=== PATIENT | male | born 1970 | race Caucasian/White ===

== ENCOUNTER → 2016-07-30 | Outpatient (CLI) | payer BC | LOC: FLAB 16:54 | PROVIDERS: ATTEND Family Medicine | DX: M16.0 Bilateral primary osteoarthritis of hip (principal); M51.36 Other intervertebral disc degeneration, lumbar region ==

== ENCOUNTER → 2018-04-07 | Outpatient (CLI) | payer BC | LOC: FIMAGING 14:02 | PROVIDERS: ATTEND Orthopaedic Surgery | DX: M16.12 Unilateral primary osteoarthritis, left hip (principal) ==

== ENCOUNTER 2018-04-27 10:26 | Inpatient (IN) | payer BC ==
[~2018-04-27 10:26] MED LIST: BUPIVACAINE/EPI 0.5% 30 ML SDV ONE; POVIDONE-IODINE 20 ML in SODIUM CL IRRIG SOLUTION 500 ML IRR ONE; ROPIVACAINE 0.2% 80 MG, EPINEPHrine 0.2 MG, KETOROLAC TROMETHAMINE 30 MG in SYRINGE 0 ML IU ONE; TRANEXAMIC ACID 1,000 MG in NS 100 ML IV ONE
[2018-04-27] MEDS ORDERED: DEXAMETHASONE 4 MG/ML VIAL IVP ONE (10:53)
[2018-04-27] MEDS ORDERED: FAMOTIDINE 20 MG TAB PO ONE (10:53)
[2018-04-27] MEDS ORDERED: ACETAMINOPHEN 325 MG TAB PO ONE (10:53)
[2018-04-27] MEDS ORDERED: ceFAZolin 2 GM/DEXTROSE 100 ML IV ONE (10:53)
[2018-04-27] MEDS ORDERED: LR 1,000 ML IV ONE (10:54)
[2018-04-27] MEDS ORDERED: LIDOCAINE 1% 2 ML INJ ID PRN (10:54)
[2018-04-27] MEDS ORDERED: LIDOCAINE 1% 2 ML INJ ONE (11:03)
--- NOTE | 2018-04-27 11:31 | PDANEPAE ---
ANE History of Present Illness OA hip ANE Past Medical History - Cardiovascular History Hx Hypertension: No Hx Arrhythmias: No Hx Chest Pain: No Hx Coronary Artery / Peripheral Vascular Disease: No Hx CHF / Valvular Disease: No Hx Palpitations: No - Pulmonary History Hx COPD: No Hx Asthma/Reactive Airway Disease: No Hx Recent Upper Respiratory Infection: No Hx Oxygen in Use at Home: No Hx Sleep Apnea: No Sleep Apnea Screening Result - Last Documented: Negative - Neurologic History Hx Cerebrovascular Accident: No Hx Seizures: No Hx Dementia: No - Endocrine History Hx Diabetes: No Hypothyroid: No Hyperthyroid: No Obesity: no - Renal History Hx Renal Disorders: Yes Renal History Comment: NOCTURIA - Liver History Hx Hepatic Disorders: No - Neurological & Psychiatric Hx Hx Neurological and Psychiatric Disorders: No - Cancer History Hx Cancer: No - Congenital Disorder History Hx Congenital Disorders: No - GI History GERD: no Hx Gastrointestinal Disorders: No - Other Health History Other Health History: RESIDUAL NASAL BREATHING. POST SEPTOPLASTY. INSOMNIA. OSTEOARTHRITIS - Chronic Pain History Chronic Pain: Yes (LT HIP) - Surgical History Prior Surgeries: SEPTOPLASTY. LT ACL RECONSTRUCTION 1998. APPENDECTOMY. T & A ANE Review of Systems Review of systems is: negative Review of Systems: - Exercise capacity METS (RN): 6 METS ANE Patient History - Allergies Allergies/Adverse Reactions: oxycodone [From Percocet] Allergy (Verified 04/18/18 12:38) NASAL CONGESTION - Home Medications Home medications: home medication list seen and reviewed Home Medications: Ascorbic Acid [Vitamin C 500 mg (*)] 500 mg PO DAILY 04/05/18 [Last Taken 1 Week Ago ~04/20/18] Glucosamine/Chondroitin [Glucosamine/Chondroitin (*)] 1 each PO DAILY 04/05/18 [ Last Taken 1 Week Ago ~04/20/18] Herbals/Supplements -Info Only 1 each PO DAILY 04/05/18 [Last Taken 1 Week Ago ~ 04/20/18] Vitamin B Complex [Vitamin B Complex (OTC)] 1 each PO DAILY 04/05/18 [Last Taken 1 Week Ago ~04/20/18] Zolpidem Tartrate [Ambien 5MG (*)] 5 mg PO HS PRN 04/05/18 [Last Taken 1 Day Ago ~04/26/18] - NPO status NPO Since - Liquids (Date): 04/27/18 NPO Since - Liquids (Time): 09:00 NPO Since - Solids (Date): 04/26/18 NPO Since - Solids (Time): 20:00 - Anes Hx Anes Hx: no prior problems - Smoking Hx Smoking Status: Never smoked - Family Anes Hx Family Anes Hx: none ANE Labs/Vital Signs - Vital Signs Blood Pressure: 116/75 Heart Rate: 67 Respiratory Rate: 16 O2 Sat (%): 96 Height: 177.8 cm Weight: 70.307 kg ANE Physical Exam - Airway Neck exam: FROM Mallampati Score: Class 2 Mouth exam: normal dental/mouth exam - Pulmonary Pulmonary: no respiratory distress, clear to auscultation - Cardiovascular Cardiovascular: regular rate and rhythym, no murmur, rub, or gallop - ASA Status ASA Status: I ANE Anesthesia Plan Anesthesia Plan: spinal
--- NOTE | 2018-04-27 12:12 | PDHPUP ---
History & Physical Update H&P update statement: This history and physical update is based on an assessment of the patient which was completed after admission or registration (within 24 hours), but prior to the surgery/procedure. H&P update: H&P reviewed & patient examined, no change in patient's condition since H&P completed
[2018-04-27] MEDS ORDERED: ZOLPIDEM TARTRATE 5 MG TAB PO PRN (12:21)
[2018-04-27] MEDS ORDERED: MIDAZOLAM 2 MG/2 ML VIAL IVP ONE (12:33)
[2018-04-27] MEDS ORDERED: PROPOFOL/EMULSION 500 MG/50 ML BOTTLE IV ONE ×2 (12:46)
[2018-04-27] MEDS ORDERED: MIDAZOLAM 2 MG/2 ML VIAL ONE (12:46)
[2018-04-27] MEDS ORDERED: LIDOCAINE 2% 5 ML SDV ONE (13:40)
[2018-04-27] MEDS ORDERED: BUPIVACAINE/DEXTROSE 7.5MG/ML 2 ML SPINAL AMP SP ONE (13:40)
[2018-04-27] MEDS ORDERED: PROMETHAZINE HCL 25 MG/ML INJ IVP PRN (14:34)
[2018-04-27] MEDS ORDERED: CYCLOBENZAPRINE 10 MG TAB PO PRN (14:34)
[2018-04-27] MEDS ORDERED: BISACODYL 10 MG SUPP PR PRN (14:34)
[2018-04-27] MEDS ORDERED: DIPHENOXYLATE/ATROPINE LOMOTIL 1 TAB PO PRN (14:34)
[2018-04-27] MEDS ORDERED: POLYETHYLENE GLYCOL 3350 17 GM PKT PO PRN (14:34)
[2018-04-27] MEDS ORDERED: diphenhydrAMINE 25 MG CAP PO PRN (14:34)
[2018-04-27] MEDS ORDERED: METOCLOPRAMIDE 10 MG/2 ML VIAL IVP PRN (14:34)
[2018-04-27] MEDS ORDERED: PROMETHAZINE HCL 25 MG SUPPR PR PRN (14:34)
[2018-04-27] MEDS ORDERED: ONDANSETRON 4 MG/2 ML VIAL IVP PRN ×2 (14:34→14:40)
[2018-04-27] MEDS ORDERED: ONDANSETRON DISINTEGRATING 4 MG TAB PO PRN (14:34)
[2018-04-27] MEDS ORDERED: TEMAZEPAM 15 MG CAP PO PRN (14:34)
[2018-04-27] MEDS ORDERED: LACTULOSE 20 GM/30 ML UDCUP PO PRN (14:34)
[2018-04-27] MEDS ORDERED: MAGNESIUM HYDROXIDE 30 ML UDCUP PO PRN (14:34)
--- NOTE | 2018-04-27 14:34 | POSTOPPROG ---
Post Op Note Date of Operation: 04/27/18 Surgeon: James Bustamante Senior Enterprise Architect: CALE Hastings Anesthesiologist: MD Dianna Anesthesia: IV Sedation, Spinal Pre-op Diagnosis: Left hip OA Post-op Diagnosis: Same Procedure: Left ant FREIDA with Humberto Inf/Abcess present in the surg proc area at time of surgery?: No EBL: 100-500 (300) Drains: Hemovac
[2018-04-27] MEDS ORDERED: NALOXONE HCL 0.4 MG/ML INJ IVP PRN (14:40)
[2018-04-27] MEDS ORDERED: HYDROmorphONE/DILAUDID 2 MG/ML INJ IVP PRN (14:40)
[2018-04-27] MEDS ORDERED: HYDROCODONE/APAP 10/325 TAB PO PRN (14:40)
[2018-04-27] MEDS ORDERED: fentaNYL 100 MCG/2 ML INJ IVP PRN (14:40)
--- NOTE | 2018-04-27 14:41 | POSTANESTH ---
Post Anesthetic Evaluation Cardiovascular Status: Normal, Stable Respiratory Status: Normal, Stable Level of Consciousness/Mental Status: Can Participate in Eval Pain Control: Adequate, Prn Tx Ordered Nausea/Vomiting Control: Adequate, Prn Tx Ordered Complications Possibly Related to Anesthesia: None Noted
--- NOTE | 2018-04-27 14:49 | PDMN ---
Medical Ne[place]ity [place] [facility] [place] OP: L FREIDA
[2018-04-27] MEDS ORDERED: LR 1,000 ML IV SCH (15:00)
--- NOTE | 2018-04-27 18:38 | GOP ---
[f rep st] OPERATIVE REPORT DATE OF OPERATION: 04/27/2018 SURGEON: James Bustamante MD YARN SPINNER: Jordan Hastings CFA. The assistant dean was required for the procedure due to the complexit y of the case and the patient's condition for positioning, prepping, draping, retraction, and closure . ANESTHESIA: Spinal and IV sedation. PREOPERATIVE DIAGNOSIS: Left hip osteoarthritis. POSTOPERATIVE DIAGNOSIS: Left hip osteoarthritis. PROCEDURE PERFORMED: Left anterior approach total hip arthroplasty with MAKOplasty robotic guidance; fluoroscopic supervision, greater than 1 hour. FINDINGS: SPECIMENS: Femoral head. ESTIMATED BLOOD LOSS: 300 cc. INDICATIONS: The patient has severe hip osteoarthritis that failed to improve with conservative fiona ures, significantly affecting activities of daily living, including walking. The patient elected to proceed with anterior approach hip replacement using MAKOplasty robotic guidance after extensive disc ussion of all possible approaches as well as the risks, benefits, pros, cons, expected recovery, and prognosis. The patient verbalized an understanding of the risks and benefits of the procedure and si gned informed consent prior to the procedure. DESCRIPTION OF PROCEDURE: The patient was seen in the holding area, and the operative consent and ex tremity were signed. The patient was taken to the operating room. After a smooth induction of spina l anesthesia and sedation, he was placed in the supine position on the operating table with the ARCH table extension. The hip and contralateral iliac crest were prepped and draped in the usual sterile fashion. The operative site was confirmed by signature. Operative time-out performed, allergies rev iewed. Antibiotics and TXA were administered. Three pins were placed in the contralateral iliac crest and the pelvic array was affixed. It was wel l visualized by the robot. Desired incision for the anterior approach on the hip was infiltrated wit h 0.25% Marcaine with epinephrine. Incision was made with a 10 blade and carried through subcutaneou s tissue to identify the TFL fascia. This was incised in line with the incision. The TFL was retrac prem laterally. The lateral femoral circumflex vessels were coagulated with Aquamantys. The deep TFL fascia was incised, and the vastus lateralis was clearly exposed. Precapsular fat was excised. A T -shaped capsulotomy was performed. The capsule was preserved for later closure. Femoral neck cut wa s then performed based on pre-templated calculations and imaging. The femoral head was excised with a corkscrew. The acetabulum was exposed in standard fashion. The labrum, pulvinar, and soft tissue were excised s madeleine. The pelvic checkpoint was placed in the AIIS. Acetabular registration was performed using t [employer] robot. Reaming was then performed using the robot to the desired size. The cup was impacted into place, again with robotic guidance system. Good fixation was achieved. The cup was irrigated and d ried, and the liner was impacted into place, achieving good locking within the cup. The femur was then exposed in standard fashion. The femur was broached to the desired size. A trial neck and head were attached, and the hip was relocated. The foot was externally rotated 90 degrees, extended to the floor, and stability was confirmed. The hip was then dislocated, femoral trial comp onents were removed, and the stem was impacted into place. The trunnion was cleaned and dried. The head was impacted down onto the trunnion. The wound was copiously irrigated, including the cup, with pulse lavage, and the hip was once again relocated. Component placement was confirmed with fluorosc opy. All checkpoints were removed. The pelvic array was also removed. The wound was copiously irrigated with sterile solution. Dilute Betadine solution was then irrigated into the wound and allowed to soa k for 3 minutes before being irrigated out. Joint cocktail was injected into the soft tissue. The c apsule and indirect head of the rectus femoris were repaired with #1 Vicryl. The drain was placed ex iting distal and laterally from deep to TFL. The wound was then closed in layers with 0 Quill in the TFL fascia and deep subcutaneous fat, 3-0 Versalok in the dermis. The wound was dressed with a ster ile dressing. The patient was safely awakened, extubated, and taken to the recovery room in stable condition. All critical portions of the procedure were performed by myself, Dr. Bustamante. This operative note was c reated by myself, and I was immediately available for emergency cross-coverage at all times. DRAINS: Hemovac x1. COMPLICATIONS: None. IMPLANTS: Included a Goldie Trident II Tritanium Clusterhole acetabular shell size 52 mm with a 0-d egree, 36 mm polyethylene liner; Accolade II size 5 stem, 127-degree offset with a 36 mm +5 head. Demetrius #: [id number]/[id number]
[2018-04-27] MEDS: ACETAMINOPHEN 325 MG TAB PO SCH (21:26)
[2018-04-27] MEDS: ASPIRIN 81 MG CHEWABLE TAB PO SCH (21:28)
[2018-04-27] MEDS: SENNOSIDES/DOCUSATE SODIUM TAB PO SCH (21:28)
[2018-04-27] MEDS: FAMOTIDINE 20 MG TAB PO SCH (21:29)
[2018-04-27] MEDS: ceFAZolin 2 GM/DEXTROSE 100 ML IV SCH (21:30)
[2018-04-28] MEDS: ACETAMINOPHEN 325 MG TAB PO SCH ×3 (02:45→19:49)
[2018-04-28] MEDS: HYDROCODONE/APAP 10/325 TAB PO PRN ×3 (02:50→18:13)
[2018-04-28] MEDS: ceFAZolin 2 GM/DEXTROSE 100 ML IV SCH (06:02)
--- NOTE | 2018-04-28 07:54 | SOAPPROG ---
SOAP Progress Note Assessment/Plan: Assessment: Postop day 1 status post left anterior approach total hip arthroplasty Plan: Weightbear as tolerated, PT/OT Incentive spirometry 10 times per hour DVT prophylaxis: Aspirin 81 mg twice daily, Landon Hose Analgesics: Percocet and Celebrex Disposition: Home today after physical therapy 04/28/18 07:53 Subjective: No acute events. Pain well controlled. Denies fevers chills nausea vomiting chest pain shortness of breath numbness or tingling. Objective: Vital Signs Temp Pulse Resp BP Pulse Ox 36.9 C 73 15 107/66 99 04/28/18 07:31 04/28/18 07:31 04/28/18 07:31 04/28/18 07:31 04/28/18 07:31 Laboratory Results 04/28/18 04:33 04/27/18 04/28/18 04/29/18 05:59 05:59 05:59 Intake Total 1350 Output Total 1345 Balance 5 No acute distress Easy nonlabored breathing Left hip: Dressing clean dry intact no erythema drainage or signs of infection Drain site clean and intact Mild ecchymosis, minimal swelling Thigh and calf compartments soft compressible Motor intact to EHL FHL tibialis anterior gastrocsoleus Sensation intact to light touch L4-S1 palpable DP PT pulses - Pending Discharge Pending Discharge Within 24 Hours: Yes Pending Discharge Date: 04/28/18 Pending Discharge Time: 11:00 ICD10 Worksheet Patient Problems: Problems Problem Status Onset Osteoarthritis of left hip Acute
[2018-04-28] MEDS ORDERED: ASCORBIC ACID 500 MG TAB PO SCH (09:00)
[2018-04-28] MEDS ORDERED: VITAMIN B COMPLEX 1 EA CAP/TAB PO SCH (09:00)
[2018-04-28] MEDS ORDERED: GLUCOSAMINE/CHONDROITIN CAP PO SCH (09:00)
[2018-04-28] MEDS: FAMOTIDINE 20 MG TAB PO SCH (09:45)
[2018-04-28] MEDS: ASPIRIN 81 MG CHEWABLE TAB PO SCH (09:46)
--- NOTE | 2018-04-28 09:50 | ASMTLACE ---
LACE Length of stay for Answers: 2 days current admission Acuity / Level of Answers: Yes Care: Did the patient have an inpatient admission? Comorbidities - select Answers: Opioid dependence all that apply / Chronic pain # of Emergency department Answers: 0 visits in the last 6 months Score: 9 Date Signed: 04/28/2018 09:49 AM Electronically Signed By:ADELIA Timmons
--- NOTE | 2018-04-28 10:15 | ASMTCMCOM ---
CM Note CM Note Notes: Pt had planned OA of hip, resides with significant other. PT rec outpatient. No CM d/c needs identified. Pt medically stable for d/c. Date Signed: 04/28/2018 10:15 AM Electronically Signed By:ADELIA Timmons
[2018-04-28] MEDS: SENNOSIDES/DOCUSATE SODIUM TAB PO SCH (11:30)
[2018-04-28 12:01] VITALS: BP 95/65
--- NOTE | 2018-05-02 14:57 | GDS ---
[f rep st] DISCHARGE SUMMARY ADMITTING DIAGNOSIS: Left hip osteoarthritis. DISCHARGE DIAGNOSIS: Left hip osteoarthritis. PROCEDURE PERFORMED: Hip anterior approach hip replacement using MAKOplasty robotic guidance. HOSPITAL COURSE: Patient was admitted on the above date and underwent the above procedure without co mplications. He was given DVT and antibiotic prophylaxis. Postoperatively, pain was well controlled . He worked with Physical Therapy on postop day 1 and was cleared for discharge home on postoperativ e day 1. DISCHARGE DISPOSITION: Home. CONDITION UPON DISCHARGE: Stable. DISCHARGE INSTRUCTIONS: Weightbearing as tolerated. Aspirin 81 mg b.i.d. for 3 weeks. Follow up in 2 weeks for postoperative evaluation. /[id number]/MODL
== END 2018-04-28 18:46 | disposition home or self-care (01) | DRG 470 ==
LOC: F3N 10:26
PROVIDERS: ADMIT Orthopaedic Surgery; ATTEND Orthopaedic Surgery
PROC: 0SRB04Z Replacement of Left Hip Joint with Ceramic on Polyethylene Synthetic Substitute, Open Approach (ICD-10-PCS; principal; 2018-04-27 12:00)
PROC: 8E0Y0CZ Robotic Assisted Procedure of Lower Extremity, Open Approach (ICD-10-PCS; principal; 2018-04-27 12:00)
DX: M16.12 Unilateral primary osteoarthritis, left hip (principal)
CPT/HCPCS: 97116-GP; 97161-GP; 97165-GO; 97535-GO; J0171; J0690; J1100; J1885; J2250; J2704; J2795